=== PATIENT | male | born 1965 | race Caucasian/White ===

== ENCOUNTER 2017-08-25 19:31 | Inpatient (IN) | payer BC, OTHER ==
[~2017-08-25] VITALS: Ht 185.4 cm; Wt 108.4 kg
[2017-08-25 19:33] VITALS: BP 202/94
[2017-08-25 20:02] LABS: ABSOLUTE NEUTROPHILS 5.8 thou/uL (1.4-8.2); EOSINOPHILS 1.7 % (0.0-3.0); HEMOGLOBIN 11.7 gm/dL (14.0-18.0); LYMPHOCYTES 16.5 % (24.0-44.0); MCH 28.8 pg (26.0-34.0); MCHC 35.5 g/dL (28.0-37.0); MCV 81.2 fL (80.0-100.0); PLATELET COUNT 202 thou/uL (150-400); POLYS 75.8 % (36.0-66.0); RBC 4.07 mil/uL (4.50-6.00); RDW 14.3 % (10.5-14.5); WBC 7.7 thou/uL (4.0-11.0)
[2017-08-25 20:14] LABS: CALCIUM 9.1 mg/dL (8.5-10.1); CREATININE 2.3 mg/dL (0.7-1.3); POTASSIUM 3.8 mmol/L (3.5-5.1)
[2017-08-25 20:20] LABS: ALBUMIN 3.2 g/dL (3.4-5.0); DIRECT BILIRUBIN 0.1 mg/dL (<0.1-0.3); TOTAL BILIRUBIN 0.5 mg/dL (<0.1-1.0); TOTAL PROTEIN 6.7 g/dL (6.4-8.2)
[2017-08-25 20:53] LABS: URINE BILIRUBIN NEGATIVE (Negative); URINE BLOOD 1+ (Negative); URINE CLARITY CLEAR; URINE COLOR YELLOW; URINE GLUCOSE-RANDOM* TRACE (Negative); URINE KETONES NEGATIVE (Negative); URINE LEUKOCYTES NEGATIVE (Negative); URINE NITRITE NEGATIVE (Negative); URINE PROTEIN (DIPSTICK) 3+ (Negative); URINE SPECIFIC GRAVITY 1.025 (1.005-1.035); URINE UROBILINOGEN 0.2 E.U./dl (0.2-1.0)
[2017-08-25] MEDS ORDERED: NORVASC5 MG PO (21:04)
[2017-08-25] MEDS ORDERED: ATORVASTATIN CA40 MG PO (21:04)
[2017-08-25] MEDS ORDERED: ASPIR 8181 MG PO (21:04)
[2017-08-25 21:05] LABS: BACTERIA 1-9 Few /HPF (None Seen); CASTS None Seen /LPF (None Seen); CRYSTALS None Seen /LPF (None Seen); SQUAMOUS None Seen /LPF (0-3); URINE RBC 3-10 Few /HPF (0-2); URINE WBC None Seen /HPF (0-5)
[2017-08-25] MEDS ORDERED: FLONASE 0.05%50 MCG NASAL (21:05)
[2017-08-25] MEDS ORDERED: AMARYL4 MG PO (21:06)
[2017-08-25] MEDS ORDERED: LANTUS SOL100 UNIT/1 SUBQ (21:07)
[2017-08-25] MEDS ORDERED: HUMALOG KW100 UNIT/1 SUBQ (21:09)
[2017-08-25] MEDS ORDERED: LISINOPRIL-HCT1 EACH PO (21:10)
[2017-08-25 22:52] VITALS: BP 149/81
[2017-08-25 23:34] VITALS: BP 142/73
[2017-08-26] VITALS: BP 157/87
[2017-08-26 06:14] VITALS: BP 150/81
[2017-08-26 06:45] LABS: CALCIUM 8.5 mg/dL (8.5-10.1); CREATININE 2.3 mg/dL (0.7-1.3); POTASSIUM 3.6 mmol/L (3.5-5.1)
[2017-08-26 07:00] VITALS: BP 163/95
[2017-08-26 14:45] VITALS: BP 160/88
[2017-08-26 16:06] LABS: GLYCOHEMOGLOBIN (HGB A1C) 5.1 % (4.8-5.6)
[2017-08-26 16:59] VITALS: BP 160/88
== END 2017-08-26 17:09 | disposition home or self-care (01) | DRG 637 ==
LOC: ER 19:31 → EROBS 21:41 → 4E 23:43
PROVIDERS: Emergency Medicine; Nurse Practitioner Family
DX: E11.649 Type 2 diabetes mellitus with hypoglycemia without coma (principal); K85.90 Acute pancreatitis without necrosis or infection, unspecified; E78.5 Hyperlipidemia, unspecified; I10 Essential (primary) hypertension; T68.XXXA Hypothermia, initial encounter; Z79.4 Long term (current) use of insulin; Z79.82 Long term (current) use of aspirin; Z79.899 Other long term (current) drug therapy
CPT/HCPCS: 10183